=== PATIENT | male | born 1945 | race Caucasian/White ===

== ENCOUNTER → 2016-05-14 | Outpatient (REF) ==
[~2016-05-14] MED LIST: ASPIRIN 81M81 MG/TA2 PO; AVALIDE 12.5 MG1 TA1 PO; AZOR 5 MG-20 MG1 TAB PO; BETAPACE 120MG120 MG PO; CARDI-OMEGA1000 MG PO; CLARITIN 1010 MG/TAB PO; FLOMAX 0.40.4 MG/CAP PO; FLONASEALLERGY NS; HYTRIN 5MG C5 MG/CAP PO; KLONOPIN 0.5MG0.5 MG PO; LEADER CLE17 GM/Dose PO; LOPRESSOR 225 MG/TAB PO; MINOXIDIL 2.5 PO; MYRBETR50MG PO; NORCO 325 MG-51 TAB PO; PRADAXA 150MG150 MG PO; PYRIDIUM 100MG100 MG PO; SINEMET CR1 UDTAB.S1 PO; SINGULAIR 110 MG/TAB PO; TERAZOSIN HCL; VITAMIN D 1001000 IU PO; VYTORIN; ZOCOR 10MG10 MG PO; ZOLOFT 50MG50 MG PO
[2016-05-14 05:34] LABS: BASO # 0.1 (0.0-0.2); BASO % 0.7 % (0.0-2.0); EOS # 0.2 (0.0-0.7); EOS % 2.1 % (0-4.0); GRAN # 5.4 (1.4-6.5); GRAN % 75.3 % (42.2-75.2); HEMATOCRIT 37.5 % (42.0-52.0); HEMOGLOBIN 13.1 g/dl (13.5-18.0); LYMPH # 1.1 (1.2-3.4); LYMPH % 14.9 % (20.0-51.0); MEAN CELL VOLUME 91 fl (80.0-100.0); MEAN CORPUSCULAR HEMOGLOBIN 32 pg (27.0-31.0); MEAN CORPUSCULAR HGB CONC 35 g/dl (33.0-37.0); MEAN PLATELET VOLUME 9.2 fl (7.4-10.4); MONO # 0.5 (0.1-0.6); MONO % 6.7 % (1.7-9.3); PLATELET COUNT 168 K/mm3 (130-400); RED BLOOD COUNT 4.13 M/mm3 (4.20-5.60); REDCELL DISTRIBUTION WIDTH-CV 12.5 % (11.5-14.5); WHITE BLOOD COUNT 7.2 K/mm3 (4.8-10.8)
== END ==
LOC: ZMSC 05:29
PROVIDERS: Urology
DX: Z01.89 Encounter for other specified special examinations (principal)

== ENCOUNTER 2016-09-17 14:48 | Emergency (ER) | payer MEDICARE, BC ==
[~2016-09-17] VITALS: Ht 185.4 cm; Wt 122.7 kg
[~2016-09-17 14:48] MED LIST changes: -AVALIDE 12.5 MG1 TA1 PO; -CLARITIN 1010 MG/TAB PO; -FLOMAX 0.40.4 MG/CAP PO; -FLONASEALLERGY NS; -KLONOPIN 0.5MG0.5 MG PO; -LEADER CLE17 GM/Dose PO; -LOPRESSOR 225 MG/TAB PO; -MINOXIDIL 2.5 PO; -MYRBETR50MG PO; -NORCO 325 MG-51 TAB PO; -PYRIDIUM 100MG100 MG PO; -SINEMET CR1 UDTAB.S1 PO; -SINGULAIR 110 MG/TAB PO; -VITAMIN D 1001000 IU PO; -ZOLOFT 50MG50 MG PO
[2016-09-17 15:26] VITALS: BP 143/87; TEMP 99.2
[2016-09-17 16:07] LABS: BASO % 0.7 % (0.0-2.0); EOS # 0.2 (0.0-0.7); EOS % 2.9 % (0-4.0); GRAN # 3.9 (1.4-6.5); GRAN % 69.5 % (42.2-75.2); HEMATOCRIT 38.6 % (42.0-52.0); HEMOGLOBIN 13.5 g/dl (13.5-18.0); LYMPH # 1.2 (1.2-3.4); LYMPH % 21.5 % (20.0-51.0); MEAN CELL VOLUME 90 fl (80.0-100.0); MEAN CORPUSCULAR HEMOGLOBIN 31 pg (27.0-31.0); MEAN CORPUSCULAR HGB CONC 35 g/dl (33.0-37.0); MEAN PLATELET VOLUME 9.2 fl (7.4-10.4); MONO # 0.3 (0.1-0.6); MONO % 5.2 % (1.7-9.3); PLATELET COUNT 180 K/mm3 (130-400); RED BLOOD COUNT 4.31 M/mm3 (4.20-5.60); REDCELL DISTRIBUTION WIDTH-CV 12.5 % (11.5-14.5); WHITE BLOOD COUNT 5.6 K/mm3 (4.8-10.8)
[2016-09-17] MEDS ORDERED: SINEMET CR1 UDTAB.S1 PO (16:20)
[2016-09-17] MEDS ORDERED: FLONASEALLERGY NS (16:22)
[2016-09-17] MEDS ORDERED: VITAMIN D 1001000 IU PO (16:22)
[2016-09-17] MEDS ORDERED: KLONOPIN 0.5MG0.5 MG PO (16:22)
[2016-09-17] MEDS ORDERED: ZOLOFT 50MG50 MG PO ×2 (16:22→16:25)
[2016-09-17] MEDS ORDERED: ASPIRIN 81M81 MG/TA2 PO (16:22)
[2016-09-17] MEDS ORDERED: MINOXIDIL 2.5 PO (16:23)
[2016-09-17] MEDS ORDERED: AVALIDE 12.5 MG1 TA1 PO (16:23)
[2016-09-17] MEDS ORDERED: LOPRESSOR 225 MG/TAB PO (16:23)
[2016-09-17] MEDS ORDERED: CLARITIN 1010 MG/TAB PO (16:23)
[2016-09-17] MEDS ORDERED: MYRBETR50MG PO (16:24)
[2016-09-17] MEDS ORDERED: LEADER CLE17 GM/Dose PO (16:24)
[2016-09-17] MEDS ORDERED: BETAPACE 120MG120 MG PO (16:24)
[2016-09-17] MEDS ORDERED: FLOMAX 0.40.4 MG/CAP PO (16:24)
[2016-09-17] MEDS ORDERED: SINGULAIR 110 MG/TAB PO (16:24)
[2016-09-17 16:34] LABS: AMPHETAMINE URINE NEGATIVE; BARBITURATES URINE NEGATIVE; BENZODIAZEPINES URINE NEGATIVE; BUPRENORPHINE URINE NEGATIVE; METHADONE URINE NEGATIVE; OPIATES URINE NEGATIVE; OXYCODONE URINE NEGATIVE; PHENCYCLIDINE URINE NEGATIVE; PROPOXYPHENE URINE NEGATIVE; THC CANNABINOIDS URINE NEGATIVE
[2016-09-17 16:36] LABS: ADJUSTED CALCIUM 9.4 mg/dL (8.4-10.2); ALANINE AMINOTRANSFERASE 27 U/L (21-72); ALBUMIN 3.8 gm/dL (3.5-5.0); ALKALINE PHOSPHATASE 48 U/L (50-136); ANION GAP 9 mmol/L (7-16); BILIRUBIN,TOTAL 2.5 mg/dL (0.0-1.0); BLOOD UREA NITROGEN 17 mg/dL (9-20); CALCIUM 9.2 mg/dL (8.4-10.2); CARBON DIOXIDE 27 mmol/L (22-30); CHLORIDE 103 mmol/L (98-107); CREATININE, serum 0.96 mg/dL (0.66-1.25); GLUCOSE 125 mg/dL (74-106); POTASSIUM 3.4 mmol/L (3.4-5.0); SODIUM 139 mmol/L (137-145); TOTAL PROTEIN 6.1 gm/dL (6.4-8.2)
[2016-09-17 16:41] LABS: ACETAMINOPHEN < 10 ug/mL (10-30); SALICYLATE < 1.0 mg/dL
[2016-09-17 18:44] VITALS: PULSE 74
== END 2016-09-17 18:45 | disposition home or self-care (01) ==
LOC: COL.ER 14:48
PROVIDERS: Emergency Medicine
DX: F32.9 Major depressive disorder, single episode, unspecified (principal); R45.851 Suicidal ideations; Z79.82 Long term (current) use of aspirin

== ENCOUNTER 2016-11-10 17:27 | Observation (INO) | payer MEDICARE, BC ==
[~2016-11-10] VITALS: Ht 185.4 cm; Wt 126.5 kg
[~2016-11-10 17:27] MED LIST changes: +AVALIDE 12.5 MG1 TA1 PO; +CLARITIN 1010 MG/TAB PO; +FLOMAX 0.40.4 MG/CAP PO; +FLONASEALLERGY NS; +KLONOPIN 0.5MG0.5 MG PO; +LEADER CLE17 GM/Dose PO; +LOPRESSOR 225 MG/TAB PO; +MINOXIDIL 2.5 PO; +MYRBETR50MG PO; +SINEMET CR1 UDTAB.S1 PO; +SINGULAIR 110 MG/TAB PO; +VITAMIN D 1001000 IU PO; +ZOLOFT 50MG50 MG PO
[2016-11-10 18:49] LABS: BASO # 0.1 (0.0-0.2); BASO % 0.6 % (0.0-2.0); EOS # 0.1 (0.0-0.7); EOS % 0.9 % (0-4.0); GRAN # 7.8 (1.4-6.5); GRAN % 85.6 % (42.2-75.2); HEMATOCRIT 41.9 % (42.0-52.0); HEMOGLOBIN 14.5 g/dl (13.5-18.0); LYMPH # 0.8 (1.2-3.4); LYMPH % 8.5 % (20.0-51.0); MEAN CELL VOLUME 90 fl (80.0-100.0); MEAN CORPUSCULAR HEMOGLOBIN 31 pg (27.0-31.0); MEAN CORPUSCULAR HGB CONC 35 g/dl (33.0-37.0); MEAN PLATELET VOLUME 9.5 fl (7.4-10.4); MONO # 0.4 (0.1-0.6); PLATELET COUNT 193 K/mm3 (130-400); RED BLOOD COUNT 4.64 M/mm3 (4.20-5.60); REDCELL DISTRIBUTION WIDTH-CV 12.7 % (11.5-14.5); WHITE BLOOD COUNT 9.1 K/mm3 (4.8-10.8)
[2016-11-10 18:59] LABS: ADJUSTED CALCIUM 9.3 mg/dL (8.4-10.2); ALBUMIN 4.1 gm/dL (3.5-5.0); BILIRUBIN,TOTAL 1.9 mg/dL (0.0-1.0); CALCIUM 9.4 mg/dL (8.4-10.2); CREATININE, serum 1.04 mg/dL (0.66-1.25); POTASSIUM 3.9 mmol/L (3.4-5.0); TOTAL PROTEIN 6.8 gm/dL (6.4-8.2)
[2016-11-10 19:27] LABS: PH 7 (5-8); SQUAMOUS EPITHELIAL None Seen /hpf; URINE APPEARANCE Hazy; URINE BACTERIA None Seen /hpf; URINE BILIRUBIN Negative (NEGATIVE); URINE BLOOD 2+ (NEGATIVE); URINE COLOR Yellow; URINE GLUCOSE Negative (NEGATIVE); URINE KETONE Negative (NEGATIVE); URINE RBC 20-50 /hpf; URINE UROBILINOGEN Negative (NEGATIVE)
[2016-11-10 21:29] VITALS: BP 150/88; PULSE 69; TEMP 98.4
[2016-11-10 23:00] VITALS: BP 150/88; PULSE 69
[2016-11-11] VITALS (12 sets, daily range): BP systolic 124–152; BP diastolic 70–89; PULSE 69–70; TEMP 97.4–98.4
[2016-11-11] MEDS ORDERED: PYRIDIUM 100MG100 MG PO (17:33)
[2016-11-11] MEDS ORDERED: NORCO 325 MG-51 TAB PO (17:34)
[2016-11-13 12:48] VITALS: BP 129/86; PULSE 70; TEMP 98.2
== END 2016-11-11 18:50 | disposition home or self-care (01) ==
LOC: COL.ER 17:27 → SURG 20:00
PROVIDERS: Emergency Medicine
DX: N20.1 Calculus of ureter (principal); I10 Essential (primary) hypertension; G20 Parkinson's disease; I48.91 Unspecified atrial fibrillation; G47.33 Obstructive sleep apnea (adult) (pediatric); M19.90 Unspecified osteoarthritis, unspecified site; E66.01 Morbid (severe) obesity due to excess calories; Z90.79 Acquired absence of other genital organ(s); Z96.653 Presence of artificial knee joint, bilateral; Z95.0 Presence of cardiac pacemaker; Z90.49 Acquired absence of other specified parts of digestive tract; Z87.891 Personal history of nicotine dependence
CPT/HCPCS: C1769; C2617; G0378; J0690; J1100; J1885; J2270; J2405; J2704; J3010; J7030; Q9967

== ENCOUNTER → 2017-03-30 | Outpatient (REF) ==
[~2017-03-30] MED LIST changes: +NORCO 325 MG-51 TAB PO; +PYRIDIUM 100MG100 MG PO
== END ==
LOC: ZLAB.WCH 18:13
DX: Z01.89 Encounter for other specified special examinations (principal)
CPT/HCPCS: G0103

== ENCOUNTER → 2018-02-24 | Outpatient (CLI) | payer MEDICARE, BC | LOC: COL.RAD 09:58 | DX: M43.16 Spondylolisthesis, lumbar region (principal); M47.816 Spondylosis without myelopathy or radiculopathy, lumbar region; M48.061 Spinal stenosis, lumbar region without neurogenic claudication | CPT/HCPCS: A9585 ==

== ENCOUNTER → 2018-05-03 | Outpatient (REF) | LOC: ZLAB.WCH 18:19 | DX: Z01.89 Encounter for other specified special examinations (principal) ==

== ENCOUNTER → 2019-01-14 | Outpatient (CLI) | payer MEDICARE, BC | LOC: COL.RAD 07:16 | DX: I67.82 Cerebral ischemia (principal); G20 Parkinson's disease; M17.12 Unilateral primary osteoarthritis, left knee; S83.232A Complex tear of medial meniscus, current injury, left knee, initial encounter | CPT/HCPCS: A9585 ==

== ENCOUNTER 2020-04-02 19:21 | Inpatient (IN) | payer MEDICARE, BC ==
[~2020-04-02] VITALS: Ht 182.9 cm; Wt 122.0 kg
[~2020-04-02 19:21] MED LIST changes: -AVALIDE 12.5 MG1 TA1 PO; +AVAPRO300 M1 PO; +SINEMET 25/101 UDTAB PO; -SINEMET CR1 UDTAB.S1 PO
[2020-04-02 20:08] VITALS: BP 122/66; PULSE 70; TEMP 98.1
[2020-04-02 20:12] VITALS: BP 122/66; PULSE 70; TEMP 98.1
--- NOTE | 2020-04-02 23:22 | NUR ---
Patient admitted with COVID19+,elevated CR 1.3, Total Avtar 4.7, TR 0.04 per documents sent from [facility]. Patient alert and oriented x4. on room air at 91-94%. heart paced, on tele. wheezing on RUL, Other lobes are Diminished. mild disconloration on bilateral lower extremities. strong pulses. admitted with IV on Left antecubital. denies any pain, diarrhea, or nausea. patient was directly admitted from [facility]. RN called nurse number from receiving facility for report, call not answered. patient afebrile, temp 98. require standby/one person assist to ambulate. Patient unable to verify medications. blood drawn from right hand, one attempt- for troponin. call light within reach. patient sleeping at this time.
[2020-04-03] VITALS (8 sets, daily range): BP systolic 129–171; BP diastolic 56–97; PULSE 73–95; TEMP 97.2–103.2
--- NOTE | 2020-04-03 03:34 | NUR ---
pt asleep in bed. troponin recheck 0.018 .
--- NOTE | 2020-04-03 09:05 | NUR ---
Pt awake and alert upon entry, no C/O pain at this time. Shift assessments complete, left Pt call light in reach, bed in lowest position.
--- NOTE | 2020-04-03 11:20 | NUR ---
Pt non compliant with safety protocols, explained reasons for bed \ chair alarm, Pt will not call before rising.
--- NOTE | 2020-04-03 14:47 | NUR ---
The patient is positive for COVID. SW contacted the patient's , Shiela (ph#[phone]), to discuss discharge plan. The patient lives in [place] with his . Shiela reports that the patient is independent with ADLs and has a walker. The patient's PCP is Dr. Dae Pacheco and he receives his medications from [facility]. Shiela reports no difficulties obtaining his meds. The patient does not have a DPOA-HC in EMR, but Shiela reports that he does have one completed and that she is the patient's DPOA-HC. PT/OT are recommending post-acute rehab and state that he is very weak due to COVID. GIANNI discussed this with Shiela and informed her of the different options for post-acute rehab. Shiela reports that she knows the patient will want to return home and she would be okay with him returning home. She states she would be able to assist him. GIANNI encouraged Shiela to think about rehab and to talk to the patient. Shiela reports that she will talk to the patient today and see what he wants to do. SW to follow up with Shiela.
[2020-04-03] MEDS ORDERED: HCTZ 25MG TAB25 MG PO (15:21)
[2020-04-03] MEDS ORDERED: LIPITOR 80MG80 MG PO (15:22)
[2020-04-03] MEDS ORDERED: MELATIN 3 MG-11 TAB PO (15:23)
[2020-04-03] MEDS ORDERED: REQUIP XL12 MG PO (15:24)
[2020-04-03] MEDS ORDERED: ARICEPT10 MG PO (15:28)
[2020-04-03] MEDS ORDERED: BELSOMRA10 MG PO (15:40)
--- NOTE | 2020-04-03 20:20 | NUR ---
Patient assessed at this time. Alert and oriented to self only. High fall risk precautions in place. Denies having pain and discomfort. Peripheral INT to left AC. Denies SOB and dyspnea. On room air. LS with faint crackles in upper lobes, diminished in lower. Occasional moist cough. Respirations even and unlabored. HRR. Telemetry in place. Capillary refill less than 3 seconds. Non-tenting skin turgor. BSAx4. Abdomen soft and non-tender. 2+ edema BLE. Voices no questions, needs, or concerns at this time. Resting in bed with call light within reach. Bed alarm on.
--- NOTE | 2020-04-03 23:15 | NUR ---
Temp 103.2. Given PRN APAP at this time.
[2020-04-04] VITALS (473 sets, daily range): BP systolic 85–132; BP diastolic 52–83; PULSE 68–154; TEMP 99.8–102.2; O2SAT 79–100
--- NOTE | 2020-04-04 05:57 | NUR ---
Patient continues to be on room air. Continues to run high fevers, most recently 102.1. Given PRN APAP per orders. Denies having pain and discomfort at this time, and no s/sx of pain or discomfort noted such as facial grimacing and moaning. High fall risk precautions remain in place. Continues on Contact/Droplet isolation per protocol. Resting in bed with call light within reach. Bed alarm on.
--- NOTE | 2020-04-04 07:57 | NUR ---
Called regarding consult for patient who came down from medical floor due to going into afib RVR with low blood pressure. He said to give a 250 ml bolud of NS and then give an Amiodorone bolus of 150 mg, and start amiodorone gtt at 1mg/hr. He will be in shortly to see patient.
--- NOTE | 2020-04-04 08:21 | NUR ---
At approximately 0610, telemetry called this nurse and stated that patient was in A-fib RVR. Called RT to have them do an EKG STAT. BP at that time 134/86. HR 140-150s. Denies pain and discomfort. SPO2 87% room air. Started on oxygen and titrated up to 8 L/min via NC to keep SPO2 at 93%. Called Dr. Burns at 0630 with update. New order to give 5 mg Cardizem bolus now. supervisor electronic testing 0notified and brining medication up to floor. BP prior to administration was 132/64. BP afterwards was 85/52, then 75/42. Manual BP obtained at that time with a result of 90/64. Called to Dr. Burns and updated about BP drop. Patient also continues in A-fib RVR ranging from 120-150s. New order for 1 L NS bolus, cardiology consult, and transfer to ICU. supervisor electronic testing aware and at bedside with this nurse. Called and got ICU bed. Started bolus. ICU unable to receive report when called at 0700. ICU called back and received report at 0725. Patient transferred to ICU and care taken over by ICU nurse at 0800. Attempted to call cardiology consult, but no answer by on-call physician. ICU nurse notified.
[2020-04-04 08:24] LABS: BASO % 0.7 % (0.0-2.0); EOS % 0.2 % (0-4.0); GRAN # 3.3 (1.4-6.5); HEMOGLOBIN 12.3 g/dl (13.5-18.0); LYMPH # 0.4 (1.2-3.4); LYMPH % 9.2 % (20.0-51.0); MEAN CELL VOLUME 94 fl (80.0-100.0); MEAN CORPUSCULAR HEMOGLOBIN 32 pg (27.0-31.0); MEAN CORPUSCULAR HGB CONC 34 g/dl (33.0-37.0); MEAN PLATELET VOLUME 10.3 fl (7.4-10.4); MONO # 0.3 (0.1-0.6); MONO % 6.7 % (1.7-9.3); PLATELET COUNT 137 K/mm3 (130-400); RED BLOOD COUNT 3.87 M/mm3 (4.20-5.60); REDCELL DISTRIBUTION WIDTH-CV 12.5 % (11.5-14.5)
[2020-04-04 08:25] LABS: HEMATOCRIT 36.2 % (42.0-52.0)
[2020-04-04 08:39] LABS: BILIRUBIN,TOTAL 2.2 mg/dL (0.0-1.0); CALCIUM 8.2 mg/dL (8.4-10.2); CREATININE, serum 1.15 (0.66-1.25); POTASSIUM 3.3 mmol/L (3.4-5.0); TOTAL PROTEIN 5.3 gm/dL (6.4-8.2)
[2020-04-04 18:25] LABS: BILIRUBIN,DIRECT 0.2 mg/dL (0.0-0.4); POTASSIUM 3.8 mmol/L (3.4-5.0)
--- NOTE | 2020-04-04 18:32 | NUR ---
1700- PT sinus rhythm, confirmed with EKG performed by RT. Dr. Rodriguez notifeid. PT continues to be in SR and is resting in bed without complaint
[2020-04-04 18:37] LABS: MAGNESIUM 2.1 mg/dL (1.6-2.3)
[2020-04-05] VITALS (495 sets, daily range): BP systolic 81–122; BP diastolic 42–84; PULSE 69–140; TEMP 97.9–101; O2SAT 58–99
[2020-04-05 05:34] LABS: BASO % 0.4 % (0.0-2.0); GRAN # 5.9 (1.4-6.5); GRAN % 83.9 % (42.2-75.2); HEMATOCRIT 43.7 % (42.0-52.0); LYMPH # 0.8 (1.2-3.4); LYMPH % 10.6 % (20.0-51.0); MEAN CELL VOLUME 97 fl (80.0-100.0); MEAN CORPUSCULAR HEMOGLOBIN 32 pg (27.0-31.0); MEAN CORPUSCULAR HGB CONC 33 g/dl (33.0-37.0); MEAN PLATELET VOLUME 10.4 fl (7.4-10.4); MONO # 0.3 (0.1-0.6); MONO % 4.8 % (1.7-9.3); PLATELET COUNT 152 K/mm3 (130-400); RED BLOOD COUNT 4.51 M/mm3 (4.20-5.60); REDCELL DISTRIBUTION WIDTH-CV 12.8 % (11.5-14.5)
[2020-04-05 05:41] LABS: HEMOGLOBIN 14.3 g/dl (13.5-18.0)
[2020-04-05 05:47] LABS: ALBUMIN 3.7 gm/dL (3.5-5.0); BILIRUBIN,TOTAL 1.8 mg/dL (0.0-1.0); CALCIUM 8.6 mg/dL (8.4-10.2); CREATININE, serum 1.22 (0.66-1.25); MAGNESIUM 2.2 mg/dL (1.6-2.3); POTASSIUM 4.4 mmol/L (3.4-5.0); TOTAL PROTEIN 6.4 gm/dL (6.4-8.2)
[2020-04-05 06:16] LABS: TSH w REFLEX 0.21 uIU/mL (0.465-4.680)
--- NOTE | 2020-04-05 10:35 | NUR ---
Report recieved from Clarisse HILL and Debbie HILL, assumed care of patient at this time.
--- NOTE | 2020-04-05 18:25 | NUR ---
Patient has been stable since arriving to the floor. At this time tele called to notify me that his heart rate was in the 140s-150s. Patient was assess and deneid chest pain or SOB. Tele called again while assessing and stated his rate was up again. I questioned whether it was NSR, tele monitor measured rate and stated that it was irregular and was likely afib. MONY Rodriguez, was notified, EKG ordered to confirm. Patient remains asymptomatic at this time. Respiratory notified of orders. WIll continue to monitor. Call light is in reach.
--- NOTE | 2020-04-05 19:30 | NUR ---
Initial assessment done-- patient in afib- RVR- rate 140,s EKG completed- Jennifer SYKES here to see patient-- order to transfer patient back to ICU at this time--- patient denies pain, alert/oriented- sleepy, B/P soft at 96/50, sats 91% on 2L/nc-- has Smith to DD with sarthak urine-
--- NOTE | 2020-04-05 20:15 | NUR ---
Report called to Briseida HILL in ICU,,, patient transferred to ICU at this time with belongings- called to give update on condition
--- NOTE | 2020-04-05 20:20 | NUR ---
Arrived to the unit via stretcher; Patient alert and oriented upon arrival. Not in distress but verbalizing displeasure at returning to the ICU. This nurse explained to patient the reason for needing to transfer back to this unit. Attached to all monitors; currently in A-fib RVR. Patient denies any increased shortness of breath, palpitations or chest pain. Currenlty on 2L NC and inspirational wheezing audible without a stethoscope. Patient is irritable and became upset and would not finish answering basic orientation quesions, such as "what is the current year". Stated he knows what the year is and that should be "good enough" . Also attempted to explain the purpose of asking orientation questions so that we can have a baseline mentation. Patient did not appear satisfied with this response. Will continue to monitor; call light left within reach.
[2020-04-06] VITALS (511 sets, daily range): BP systolic 99–139; BP diastolic 59–97; PULSE 98–142; TEMP 97.5–100.5; O2SAT 40–100
--- NOTE | 2020-04-06 | NUR ---
Patient has had audible wheezing since arrival onto unit. Patient stated that the wheezing was not new. Patient has not reported new or worsening SOA. 02 stable in mid to upper 90's on 2L NC. Hospitalist notifed. Will verify if patient has a breathing treatment available.
[2020-04-06 05:17] LABS: MEAN CELL VOLUME 95 fl (80.0-100.0); MEAN CORPUSCULAR HGB CONC 33 g/dl (33.0-37.0); MEAN PLATELET VOLUME 10.4 fl (7.4-10.4); PLATELET COUNT 146 K/mm3 (130-400); RED BLOOD COUNT 3.82 M/mm3 (4.20-5.60); REDCELL DISTRIBUTION WIDTH-CV 12.5 % (11.5-14.5)
[2020-04-06 05:29] LABS: CALCIUM 8.2 mg/dL (8.4-10.2); CREATININE, serum 1.05 (0.66-1.25); HEMATOCRIT 36.2 % (42.0-52.0); HEMOGLOBIN 12.1 g/dl (13.5-18.0); MEAN CORPUSCULAR HEMOGLOBIN 32 pg (27.0-31.0)
--- NOTE | 2020-04-06 05:43 | NUR ---
HR in A-fib and ranging from 115 to 140's. Hospitalist had spoken with cardiology earlier in the shift. Toolroom Checker ok with a HR 130 or less. Hospitatlist notified that HR occasionally greater than 130, but not sustained. Ordered to just continue to monitor at this time and cardiology will see him in the morning.
[2020-04-06 05:49] LABS: ANISOCYTOSIS 1+; BAND 36 % (0-10); LYMPHOCYTE 4 % (20.0-51.0); NEUTROPHILS 57 % (42.0-75.2)
[2020-04-06 05:50] LABS: HYPOCHROMIA 1+; PLATELET ESTIMATE NORMAL (NORMAL)
--- NOTE | 2020-04-06 08:00 | NUR ---
PATIENT IS AWAKE AND EATING BREAKFAST. HE BECOMES TEARFUL DURING OUT INITIAL INTERACTIONS OF THE DAY. HE STATES "IS THERE ANY WAY A MAN CAN CHOOSE WHEN HE WANTS TO ?" I GIVE EMOTIONAL SUPPORT AND WORDS OF ENCOURAGEMENT. BY THE END OF OUR CONVERSATION, HE IS IN A BETTER MOOD. BED ALARM ACTIVATED AND CALL LIGHT WITHIN REACH.
--- NOTE | 2020-04-06 09:00 | NUR ---
DR. BETTS IS HERE AND HE STATES THAT PATIENT CAN GO BACK ON PO AMIODARONE, GIVE DOSE OF IV DIGOXIN RIGHT NOW AND PLACE ON PO DIGOXIN DAILY FOR RATE CONTROL. PHARMACY, [facility], HERE TO HEAR THOSE ORDERS. HE STATES THAT HE IS OK WITH HEART RATE LONG IT IS 120s OR LESS.
--- NOTE | 2020-04-06 12:00 | NUR ---
PATIENT PULLS OF GOWN AND TELEMETRY REPEATEDLY. I ASK HIM TO KEEP IT ON AND HE STATES "GET ME THE HELL OUT OF HERE. I WANT TO GO HOME!" I EXPLAIN TO HIM THAT HE NEEDS TO STAY IN THE HOSPITAL BECAUSE OF HIS COVID INFECTION AND THE PNEUMONIA. HE IS ANGRY, BUT ALLOWS ME TO PUT THE TELE BACK ON AND HIS GOWN ON.
--- NOTE | 2020-04-06 16:30 | NUR ---
PATIENT ASSISTED TO THE RECLINER WITH TWO RNs AND A GAIT BELT. HE HAS SHUFFLING GAIT AND IS REMINDED TO TAKE BIGGER STEPS. HE TOLERATES THIS TRANSFER WELL. HE HAS BEEN ON ROOM AIR FOR A COUPLE OF HOURS MAINTAINING AN SPO2 GREATER THAN 92%. THIS NURSE NOTES THAT ONE OF THE PATIENT'S IV'S HAS BEEN REMOVED AND PLACED ON THE SIDE TABLE. I TELL THE PATIENT THAT HE NEEDS TO KEEP HIS IV'S IN PLACE SO THAT WE CAN GIVE HIM THE MEDICATION HE NEEDS. HE SAYS "OK".
--- NOTE | 2020-04-06 23:40 | NUR ---
Patient sleeping in bed; arouses easily. Denies any needs or concerns at this time.
[2020-04-07] VITALS (438 sets, daily range): BP systolic 96–155; BP diastolic 77–96; PULSE 71–120; TEMP 97.4–98; O2SAT 56–100
[2020-04-07 05:00] LABS: BASO % 0.2 % (0.0-2.0); EOS % 0.2 % (0-4.0); GRAN # 3.8 (1.4-6.5); GRAN % 84.5 % (42.2-75.2); LYMPH # 0.4 (1.2-3.4); LYMPH % 7.8 % (20.0-51.0); MEAN CELL VOLUME 95 fl (80.0-100.0); MEAN CORPUSCULAR HEMOGLOBIN 32 pg (27.0-31.0); MEAN CORPUSCULAR HGB CONC 33 g/dl (33.0-37.0); MEAN PLATELET VOLUME 10.4 fl (7.4-10.4); MONO # 0.3 (0.1-0.6); MONO % 6.2 % (1.7-9.3); PLATELET COUNT 178 K/mm3 (130-400); REDCELL DISTRIBUTION WIDTH-CV 12.5 % (11.5-14.5)
[2020-04-07 05:11] LABS: CALCIUM 8.1 mg/dL (8.4-10.2); CREATININE, serum 0.85 (0.66-1.25); POTASSIUM 3.9 mmol/L (3.4-5.0)
--- NOTE | 2020-04-07 08:42 | NUR ---
This am Patient is alert and oriented. c/o back being tight. PT helped up to chair via gaitbelt and 1 assist. Patient has a shuffling gait and somewhat unsteady. Patient is eager to work with physical therapy. Patient states sitting in chair feels better for his back. Pt is currently resting listening to music with call light in reach.
--- NOTE | 2020-04-07 11:29 | NUR ---
Report given to LIZ Krishnan on medical floor.
--- NOTE | 2020-04-07 11:51 | NUR ---
Patient transferred by wheelchair up to room 306. LIZ Krishnan assumed care at this time.
--- NOTE | 2020-04-07 12:36 | NUR ---
Pt arrives to medical unit rm 306 from ICU via WC, A&O x 3. VSS. Pt denies pain at this time. IVF's infusing per orders through right wrist site without s/s of complications. No further needs reported. Call light in reach.
--- NOTE | 2020-04-07 14:31 | NUR ---
Pt having issues with leaking catheter. Balloon deflated and catheter advanced, balloon reinflated with 10 ml water and catheter seated. Statlock repositioned to not pull catheter taut. Pt reports "it feels better." No further needs reported. Call light in reach.
--- NOTE | 2020-04-07 17:30 | NUR ---
Around 1600, LEGAL DIRECTOR informed this nurse that pt had inadvertently pulled his IV out of his right wrist. LIZ Cazares attempted IV start x 2. This nurse attempted IV start x 2. c d area supervisor notified and successful with IV start to left forearm. IVF's restarted to new site and sched IV medication started as well. Pt reminded to not pull at IV or catheter or school bus monitor. Pt verbalizes understanding. No further needs reported. Call light in reach.
--- NOTE | 2020-04-07 22:24 | NUR ---
Patient in bed at this time.
[2020-04-08 03:42] VITALS: BP 142/98; PULSE 97; TEMP 97.4
--- NOTE | 2020-04-08 07:30 | NUR ---
Assessment complete. Patient set off bed alarm at this time attempting to sit up on the side of the bed stating that his back was stiff from laying. I gowned up to assist patient. Patient requested to stand at the bedside "for a while", X1 assist used to stand patient up and allow him to stretch his back and stand for a little bit, this helped. Patient was then assisted to the recliner, chair alarm in place. Smith is patent, draining clear yellow urine at this time. IVF continue to infuse with no issues. Will continue to monitor. Fall precautions are in place. No other needs. Call light is in reach.
[2020-04-08 07:54] VITALS: BP 159/96; PULSE 98; TEMP 97.5
[2020-04-08 08:24] LABS: CALCIUM 8.5 mg/dL (8.4-10.2); CREATININE, serum 0.85 (0.66-1.25); MAGNESIUM 2.3 mg/dL (1.6-2.3); POTASSIUM 4.1 mmol/L (3.4-5.0)
--- NOTE | 2020-04-08 11:10 | NUR ---
Patient up to the restroom at this time. Ambulated through room with walker, steady gait but insisted on walking with walker not touching the groud, despite suggestions to use it as an aid top make sure he didnt fall. OVerall patient did well. Pt now back to bed, bed alarm set. Call light is in reach.
[2020-04-08 12:12] VITALS: BP 147/90; PULSE 80; TEMP 97.4
[2020-04-08 16:09] VITALS: BP 148/81; PULSE 94; TEMP 97.3
--- NOTE | 2020-04-08 17:02 | NUR ---
Patient has had a good day. He has moved around the room quite a bit with assistance and his walker. He is currently in the recliner. Provider mentioned removing carlos catheter, still awaiting orders. Attempted to call with no answer. Will call again before the end of shift. Chair alarm is set. Continuing to monitor.
[2020-04-08 20:18] VITALS: BP 150/71; PULSE 69; TEMP 97.6
[2020-04-08 23:58] VITALS: BP 155/91; PULSE 97; TEMP 97.6
[2020-04-09 03:54] VITALS: BP 146/87; PULSE 94; TEMP 97.7
[2020-04-09 08:08] VITALS: BP 152/95; PULSE 69; TEMP 97.2
--- NOTE | 2020-04-09 08:30 | NUR ---
Pt awake and alert upon entry, in bed. No C\O pain at this time. Talkative and appropriate. Shift assessments copmplete, left Pt call light in reach, bed in lowest position, alarm on.
[2020-04-09 11:17] VITALS: BP 145/79; PULSE 102
--- NOTE | 2020-04-09 13:31 | NUR ---
Postal Inspector reviewed PT notes which recommend IPR. GIANNI contacted Nohemy, IPR Director to give referral. GIANNI contacted patient's , Shiela to provide update. Shiela states she understands this will likely benefit patient but also advised patient has Parkinsons and isn't sure if there would be any point to rehab. Shiela states patient sees Dr. Yeung and she is going to call them to discuss this with them. Shiela to also discuss this with patient then will follow up with GIANNI. GIANNI also advised Shiela that rehab could be done at SNF as well. GIANNI will continue to follow.
[2020-04-09] MEDS ORDERED: AZO-STANDARD95 MG PO (14:44)
[2020-04-09] MEDS ORDERED: DULCOLAX S10 MG/SUPP RC (14:44)
[2020-04-09] MEDS ORDERED: TYLENOL 325MG325 MG PO (14:45)
[2020-04-09] MEDS ORDERED: TOPROL XL 25MG25 MG PO (14:45)
[2020-04-09] MEDS ORDERED: PACERONE200 MG PO (14:46)
[2020-04-09] MEDS ORDERED: PACERONE400 MG PO (14:46)
[2020-04-09] MEDS ORDERED: ELIQUIS 5MG PO (14:46)
[2020-04-09] MEDS ORDERED: LANOXIN 0.120.125 MG PO (14:46)
[2020-04-09] MEDS ORDERED: RT Albuterol HFA MDI IH ×2 (14:47)
[2020-04-09] MEDS ORDERED: NORCO 325 MG-51 TAB PO (14:48)
[2020-04-09] MEDS ORDERED: HCTZ12.5TAB PO (14:49)
[2020-04-09] MEDS ORDERED: AVAPRO75 MG PO (14:50)
--- NOTE | 2020-04-09 14:51 | NUR ---
Patient to discharge to Inpatient Rehab today. No additional needs at this time.
[2020-04-09] MEDS ORDERED: DECADRON6 MG PO (14:56)
[2020-04-09 16:18] VITALS: BP 117/67; PULSE 76
--- NOTE | 2020-04-09 16:54 | NUR ---
Pt discharged to [facility].
== END 2020-04-09 16:54 | DRG 177 ==
LOC: PEDS 19:21 → ICU 04-04 07:54 → MEDICAL 04-05 17:57 → ICU 04-05 19:54 → MEDICAL 04-07 12:34
PROVIDERS: Internal Medicine; ADMIT Hospitalist
PROC: XW033E5 Introduction of Remdesivir Anti-infective into Peripheral Vein, Percutaneous Approach, New Technology Group 5 (ICD-10-PCS; principal; 2020-04-05)
DX: U07.1 COVID-19 (principal); J12.82 Pneumonia due to coronavirus disease 2019; J96.01 Acute respiratory failure with hypoxia; N17.9 Acute kidney failure, unspecified; I48.20 Chronic atrial fibrillation, unspecified; I10 Essential (primary) hypertension; I25.10 Atherosclerotic heart disease of native coronary artery without angina pectoris; E87.6 Hypokalemia; I07.1 Rheumatic tricuspid insufficiency; E78.5 Hyperlipidemia, unspecified; G20 Parkinson's disease; F32.9 Major depressive disorder, single episode, unspecified; R53.81 Other malaise; Z79.82 Long term (current) use of aspirin; Z79.891 Long term (current) use of opiate analgesic; Z95.0 Presence of cardiac pacemaker; Z73.0 Burn-out
CPT/HCPCS: 99223-AI; 99232-AI; 99233-AI; 99239; A4314; J0282; J0696; J1160; J7030; J7040; J7050; J7060; J8540

== ENCOUNTER 2020-04-09 15:31 | Inpatient (IN) | payer MEDICARE, BC ==
[~2020-04-09] VITALS: Ht 182.9 cm; Wt 117.6 kg
[~2020-04-09 15:31] MED LIST changes: +ARICEPT10 MG PO; +AVAPRO75 MG PO; +AZO-STANDARD95 MG PO; +BELSOMRA10 MG PO; +DECADRON6 MG PO; +DULCOLAX S10 MG/SUPP RC; +ELIQUIS 5MG PO; +HCTZ 25MG TAB25 MG PO; +HCTZ12.5TAB PO; +LANOXIN 0.120.125 MG PO; +LIPITOR 80MG80 MG PO; +MELATIN 3 MG-11 TAB PO; +PACERONE200 MG PO; +PACERONE400 MG PO; +REQUIP XL12 MG PO; +RT Albuterol HFA MDI IH; +TOPROL XL 25MG25 MG PO; +TYLENOL 325MG325 MG PO
[2020-04-10 06:23] VITALS: BP 141/83; PULSE 75; TEMP 97.3
--- NOTE | 2020-04-10 10:07 | NUR ---
Pt awake and alert upon entry, sitting in the recliner. No C\O pain at this time. Shift assessment complete, left Pt call light in reach, bed in lowest position.
[2020-04-10 18:32] VITALS: BP 112/74; PULSE 96; TEMP 97.5
--- NOTE | 2020-04-10 19:24 | NUR ---
Pt resting in the room, mildly confused, easily redirected. No C/O pain throughout the day. VS have remained stable.
--- NOTE | 2020-04-10 20:30 | NUR ---
Sitting in chair-- attempting to get up-- states he needs to "go out", confused, shuffling gait with walker-- did take to bathroom, voided small amount urine, states he need to find his electric heater-- informed I will turn up the heat-- changed him out of street clother-- gown and ffoties put on patient, meds given-- back to bed--did have some pudding and crackers as a snack-- bed alarm on,
--- NOTE | 2020-04-11 04:30 | NUR ---
Has been sleeping between bathroom trips during the night-- now is awake and up to bathroom with walker and assistance-- very slow,shuffling gait--- pt will not go back to bed, insists he is taking a shower and getting dressed, informed him its the middle of the night-- states he needs to find his car--trying to go out in the driver- uncooperative, did help patient get dressed ,pt insisting , is now sitting in the recliner having a snack-- refused to watch TV-- did find his phone charger tester and he is charging his phone,, chair alarm on
[2020-04-11 04:31] VITALS: BP 160/95; PULSE 76; TEMP 97.4
--- NOTE | 2020-04-11 10:49 | NUR ---
After review of patient labs and clinical status and based on COV symptom onset of 1-24-20 recommend COV isolation precautions be discontinued. LIZ Pelaez
--- NOTE | 2020-04-11 12:32 | NUR ---
Patient alert and oriented. complain of chronic back pain at 8/10, tylenol given for pain. Physical therapist continue to work with patient. patient report good appetite. No new concern or question at this time. call light within reach. Patient on Room air.
[2020-04-11 13:15] VITALS: BP 142/78; PULSE 75; TEMP 97.5
--- NOTE | 2020-04-11 15:03 | NUR ---
Patient transferred to IPR unit. Report give to SHEBA Fitzpatrick nurse. patient belonging was transferred with patient.
--- NOTE | 2020-04-11 15:54 | NUR ---
Patient ambulated with out using his call light. He was frustrated with this nurse stating that he did not want to sit down or lay down and didn't want to walk. Does not want staff to be in the bathroom with him. He is stable with his standing when using the urinal.
[2020-04-11 16:20] VITALS: BP 145/81; PULSE 66; TEMP 97.5
--- NOTE | 2020-04-11 16:20 | NUR ---
The patient is new to [facility]. Soap Drier Operator met with the patient to complete intake. The patient lives in [place] with his , Shiela. The patient has a CPAP and a walker. The patient's PCP is Dr. Parada and patient receives medications from [facility]. The patient does not have advanced directives in the EMR. But states they are completed and designate Shiela. There are no additional needs at this time.
--- NOTE | 2020-04-11 16:25 | NUR ---
Actuarial Consultant met with the patient to review the Team Conference Note. The patient has no questions at this time.
--- NOTE | 2020-04-11 19:37 | NUR ---
RECEIVED CHANGE OF SHIFT REPORT FROM DAY SHIFT NURSE.
--- NOTE | 2020-04-11 19:49 | NUR ---
Patient arrived to [facility] at 2:40 PM today. This nurse received report from LIZ Kyle from Medical unit. Patient was immediatly seen by OT and completed his therapies. Patient tolerating diet well this shift. He is on an AHA diet and is independent with eating. Patient is a SBA without a walker, but with a gait belt. He does have some confusion at times. Patient has had an alarm set with both bed and recliner. Patient uses the urinal in the bathroom. He is considered a high fall risk due to his confusion. His IV was removed to his LFA after arrival to [facility]. He takes Eliquis for his VTE. His last BM was yesterday. Patient did complain of some back pain and was given prn Tylenol. Will continue to monitor.
--- NOTE | 2020-04-11 20:00 | NUR ---
NOT ORIENTED TO PLACE/TIME. GAIT SHUFFLING TO UNSTEADY AT TIME, VERBALIZES HE DOES NOT NEED TO HAVE GAIT ON WHEN OUT OF BED.
--- NOTE | 2020-04-11 20:11 | NUR ---
PATIENT SAT UP AT SIDE OF BED, SETTING OFF BED ALARM, PATIENT STATED HE DID NOT KNOW WHY HE WAS SITTING UP AT SIDE OF BED. STAFF WAS ABLE TO ENCOURAGE PATIENT TO LAY BACK DOWN FOR HS. DENIES ANY NEEDS AT THIS TIME.
--- NOTE | 2020-04-11 20:46 | NUR ---
PATIENT GETTING OUT OF BED WITHOUT CALLING FOR ASSISTANCE FROM STAFF, SETTING OFF BED ALARM. PATIENT AMBULATING WITH SHORT CHOPPY STRIDE, NOT QUITE SHUFFLING BUT CLOSE, WITH GAIT STEADY WITH SHORTENED STRIDE. BED ALARM TURNED ON WHEN BACK IN BED FROM BATHROOM.
--- NOTE | 2020-04-11 22:55 | NUR ---
PATIENT GETTING OUT OF BED, SETTING OFF BED ALARM. PATIENT STATING HE WANTS TO GET OUT OF BED, WANTING TO EAT BREAKFAST, WHEN INFORMED THIS WAS TIME FOR SLEEP, PATIENT REPLIED "I DON'T CARE". PATIENT AMBULATED W/GAIT BELT IN PLACE AND YELLOW HOSP SOCKS ON WITH STAFF BAR MACHINE OPERATOR MULTIPLE SPINDLE ACCOMPANYING PATIENT. AFTER WALK, PATIENT AGREED TO LAY DOWN TO SLEEP, IF ABLE.
--- NOTE | 2020-04-11 23:01 | NUR ---
PATIENT NEEDED FREQUENT CUES TO CALIBRATION LABORATORY TECHNICIAN FEET WHEN WALKING.
--- NOTE | 2020-04-11 23:30 | NUR ---
PATIENT SITTING UP IN CHAIR, LEANING TO LEFT WITH EYES CLOSED, BREATHING NONLABORED AND DOES NOT WAKE WHEN STAFF STOOD IN DOORWAY. CHAIR ALARM ON.
[2020-04-12 05:41] VITALS: BP 132/86; PULSE 78; TEMP 97.3
--- NOTE | 2020-04-12 10:54 | NUR ---
Patient working with therapy at this time. Night nurse reported that patient did not sleep last night but a few hours due to bed being uncomfortable. Patient was given an air mattress which he agreed too. Patient refused to sit in the recliner so staff provided patient a regular chair to sit in and an alarm was placed in that chair along with blanket to provide more comfort. Patient was not using his call light this morning so this nurse spent approximatly 40 minutes with patient educating and visiting with him. This nurse spoke with Nohemy Fair and Nohemy was able to visit with patient and he has been complying with staff at this time. This nurse did speak with surgical nurse and they recommended that this nurse get an order for a sitter for the patient. Nohemy spoke with this nurse and it was decided to continue to observe patient before the decision to use a sitter was determined. Will continue to monitor.
--- NOTE | 2020-04-12 11:30 | NUR ---
This nurse received a report from Speech therapy that patient was not happy and did not want to participate in therapy today.
--- NOTE | 2020-04-12 11:45 | NUR ---
Was updated by PT that patient was refusing therapies. Patient was found to be lying on his bed with feet on the floor facing the window and his body was lying accross the bottom half of the bed and his head was lying on the bed side table. Patient kept trying to close his eyes, but would then get frustrated and then just sit up. Patient refused to lie on the bed in a lengthwise direction, because he wanted to go home and sleep on his bed. Our bed is too soft for him. This position the patient was in concerned this nurse so this nurse asked supervisor car and yard if patient could have a sitter, because this nurse felt like he was not making safe decsions when left in his room alone. This nurse then spoke with Nohemy Hugginsjanis and she was able to visit with patient. Patient at about that same time was seen by his grand daughter and she was able to sit with him for a while. Patient was very tearful and Nohemy was able to visit with both his granddaughter and patient. Following this discussion patient was again tearful and began talking to friends and family on the phone asking them to come and pick him up so he could go home. This nurse asked management if someone would be available to sit with patient as this nurse found out from Nohemy Fair that patient had made a statment about suicide. Management spent a good hour or more walking and visiting with patient, when at some time patient tried to leave the facility. Patient's daughter was called following patient being seen by providers. Daughter was able to stay and keep patient occupied and calmed down. During the daughter's visit [facility] appliance service representative Kavon Saleh called and he had this nurse set patient up with a zoom psych screening over the [facility]. Patient was refusing to do this, but did talk with Kavon for a short period of time. Patient refused any type of services stating that he just wanted to go home. After the zoom meeting was completed Kavon said that he would send his report via fax to [phone] in about 40 minutes. He said that patient had a similar episode like today about 3 years ago and patient had refused to go to any facility at that time as well. He recommended that staff work with patient at the hospital and he suggested given patient Zyprexa 1-5 mg 1 x dose along with Trazadone. He also suggested 0.5 mg Risperidol PO along with Seroquel in combination to possibly help with patient's agression/frustration. This was communicated to the provider Lulu. Following the zoom conference call the Provider Lulu saw patient and patient was put on suicide precautions. This nurse received a call from a Earnest Sears, of which is the patient's so called adopted son that lives in [place], [place]. Earnest was calling on behalf of the patient's and gave this nurse the pin number for the patient. Earnest was provided a brief update on the patient's condition and then Earnest said that he would update patient's and text Nivia, granddaughter to make sure she knew that he had called the hospital with some concerns. Patient is now with his sitter and this reported off to that nurse. He will continue to monitor the patient.
--- NOTE | 2020-04-12 13:56 | NUR ---
Admission QIM scores were reviewed by the team. Code of 2 chosen for sit to lying was determined by team discussion to be the most usual performance for this patient during the assessment period. Code of 3 chosen for walk 10 feet was determined by team discussion to be the most usual performance for this patient during the assessment period.--Nohemy Fair,
--- NOTE | 2020-04-12 14:46 | NUR ---
Pt sitting up in his chair. He first stated that he has had a bad day. I asked what happened or if there was something I could do to make it better. He said no. After some talking, he stated that he was just tired of living and that there was going to be a big [place] gathering to discuss what he is to do. I asked him if he has talked to his family about what he wants, he stated, "No, because I'm going to be there." He says that his brother is going to come pick him up. Attempted to do the suicide screening, but he only responded with, "Don't even go there, I know what you are trying." I brought the conversation back to him stating that he said he was tired of living. Pt started to get agitated and said he doesn't want to talk about that. Pt no longer talking to me and is attempting to make phone calls to his family.
--- NOTE | 2020-04-12 15:26 | NUR ---
Have had multiple visits w/ patient today. Initially was due to him not wanting to sit, so spent some time visiting with him, which seemed to help. Later was informed by ST that pt had verbalized suicidal thoughts & has a plan. Spoke w/ pt again, who is tearful & admits that he is in a dark place & that he doesn't feel he is going to get any better & is tired of dealing w/ the Parkinson's. Went back to visit w/ pt & his granddaughter was visiting but they were both crying. Pt reported that he has talked to his & son about not wanting to carry on. Granddaughter is very upset & spent time talking w/ her. Was informed that he has a history of depression w/ the Parkinson's & had been on medication but quit taking them. She stated he did have suicidal thoughts about 3 years ago but didn't think it had been an issue anymore. We talked about how being isolated during his COVID quarantine & the sickness can have a negative effect on one's thought process. We did schedule for a Family Meeting at 1:00 pm tomorrow, 04/13/20. Nurse survey project manager has been notified regarding what actions need to be taken.
--- NOTE | 2020-04-12 17:07 | NUR ---
Pt back in his room at this time visiting with his daughter. He left his room escorted by myself and wanted to leave. He refused to allow me to put on a gait belt. I was able to distract him for some time before he was able to force himself off the unit and to elevator A. I asked for more assistance as he was continuing trying to leave the hospital. Dr Arnold and Lulu JIG AND FIXTURE REPAIRER present and assessed him as well. Pt was steady on his feet during this time.
--- NOTE | 2020-04-12 19:32 | NUR ---
Daughter here with pt Pt refusing parts of head to toe assessment. Pt walking in room and hallway without difficulty, refusing to wear mask. At the moment pt is restless but not aggitated. Pt is redirected or calmed by speaking about his classic cars, which is a passion of his. Pt refusing to answer suicide assessment questions - avoids answering by asking for help working on one of his vehicles when he goes home. Call light in reach Pt in line of sight 193: pt requesting sleeping pill as pt states he is ready for bed since "I only slept maybe one hour last night". Daughter has left after settling pt in bed. Bed alarm on. Pt instructed to call even though staff will have eyes on pt.
[2020-04-12] MEDS ORDERED: BELSOMRA10 MG PO (20:14)
[2020-04-13 04:45] VITALS: BP 132/91; PULSE 73; TEMP 97.1
--- NOTE | 2020-04-13 09:59 | NUR ---
PT RESTING IN RECLINER AT BEDSIDE SHIFT REPORT. PT HAD A GOOD NIGHTS REST, FAMILY TO BE BRINGING IN [facility] SLEEP [facility] TODAY FOR INSOMNIA. PT COOPERATIVE WITH THERAPY THIS AM. ABLE TO HAVE CALM AND OREINETED CONVERSATION WITH PT THIS AM, ABLE TO PERFORM ASSESS AND AMDMINISTER ORAL MEDS.
--- NOTE | 2020-04-13 15:18 | NUR ---
Adjuster attended family meeting, those present were Nohemy, IPR Director, PT/OT/ST staff and the patient's family present via speaker phone. Nohemy began the meeting with stating it's purpose. Staff went over the patient's progress. The team is recommending a discharge on Monday 04/17 with home health services. The family also inquired about private duty services. The patient would also benefit from outpatient mental health support. SW to follow up with family regarding recommendations. All questions were answered.
--- NOTE | 2020-04-13 15:22 | NUR ---
GIANNI contacted the patient's , Shiela, to follow up on home health, private duty services, and outpatient mental health. GIANNI informed Shiela of [employer]'s list of home health agencies that serve [place]. Shiela chose [facility]. GIANNI contacted and faxed a referral to Emilee at [facility]. Emilee reports that they are able to accept the patient for services. GIANNI then discussed private duty services and provided Shiela with the contact information for [facility]. GIANNI informed Shiela of the [facility] for [facility] in [place] for outpatient mental health. Shiela was interested in getting the patient set up there. GIANNI contacted and faxed the patient's facesheet and medlist to Hoang at [facility]. Hoang reports that they will get in touch with the patient's early next week to set up an appointment.
[2020-04-13 17:25] VITALS: BP 84/35; PULSE 68; TEMP 97.3
--- NOTE | 2020-04-13 19:29 | NUR ---
PT DID NOT SHOW ANY AGITATION TO THIS NURSE TODAY. PARTICIPATED IN THERAPY, WAS SOMEWHAT GROGGY THIS AFTERNOON. FAMILY CALLED TO SEE IF THEY ARE STILL BRINGING IN SLEEP AID [facility], HAS NOT SHOWN UP AT SHIFT CHANGE.
[2020-04-13 19:34] VITALS: BP 120/64; PULSE 73
--- NOTE | 2020-04-13 19:41 | NUR ---
Rechecked patient's blood pressure.
--- NOTE | 2020-04-13 20:32 | NUR ---
Patient sitting up in chair. Took bedtime meds. Requested chocolate ice cream. No complaints at this time.
--- NOTE | 2020-04-13 22:00 | NUR ---
Patient walking the halls looking at pictures. States he does not want to go to bed. Patient given melatonin.
--- NOTE | 2020-04-13 22:31 | NUR ---
Patient back in his room sitting in his chair. Chair alarm on. Patient says he does not need it and it will go off all night. Explained to patient it was for his safety and would not alarm unless he got up. Patient given seroquel.
[2020-04-14 05:04] VITALS: BP 128/86; PULSE 80; TEMP 98.3
--- NOTE | 2020-04-14 06:23 | NUR ---
Patient slept through most of the night with no complaints. Bed/chair alarm kept on throughout the night.
[2020-04-14 17:15] VITALS: BP 108/44; PULSE 71; TEMP 97.5
--- NOTE | 2020-04-14 18:30 | NUR ---
PATIENT BECAME AGITATED AND RESTLESS AFTER COMPLETING AFTERNOON THERAPY AND EATING LUNCH. PATIENT WAS CURSING AT NURSING STAFF AND STARTED PACKING HIS BAG. PATIENT WAS NOT ABLE TO BE RE-DIRECTED AND REFUSED TO TAKE PRN SEROQUEL. MONY MAYES CALLED AND NOTIFIED. ORDERS TO TRY AND GIVE SEROQUEL AGAIN WHEN THE PATIENT CALMS DOWN A LITTLE. PATIENT ENDED UP TAKING A PRN DOSE OF SEROQUEL WITH AFTERNOON DOSE OF SINEMET. PATIENT IS CURRENTLY RESTING IN BED WITH ALARMS ON. CALL LIGHT IN REACH. WILL REPORT OFF TO ONCOMING NURSE.
--- NOTE | 2020-04-14 19:30 | NUR ---
PT SLEEPING. NO DISTRESS. BED ALARM ON MIDDLE SETTING. CALL LIGHT IN REACH.
--- NOTE | 2020-04-14 20:00 | NUR ---
PT AWAKE. BED ALARM SOUNDING. SITTING ON SIDE OF BED. CALM. PT HAS TO GO TO BR. PT STANDS TO AMB TO BR. ENC TO STOP TO PUT ON GAIT BELTS. PT REPLIED I CAN'T. KEEPS GOING. RELATES HE DID NOT NEED WALKER BUT TOOK IT WITH HIM INTO BR. PT VOIDED THEN RETURNED TO BED. PT WILLING TO TAKE HS MEDS. RETURN TO SLEEP. CALL LIGHT IN REACH. BED ALARM ON.
--- NOTE | 2020-04-14 23:17 | NUR ---
SPOKE WITH YONATAN JULIAN REGARDING CLARIFICATION OF SUICIDE RISK OBS LEVEL 2. SHE WILL ENTER NEW ORDER TO DC OBSERVATION.
--- NOTE | 2020-04-15 04:00 | NUR ---
PT HAS BEEN RESTING IN RECLINER WITH FEET ELEVATED AND CHAIR ALARM ON. NOW CHAIR ALARM SOUNDING. FOUND PT STANDING. PT TIRED OF CHAIR AND BED. PT WANTS TO TAKE A WALK. PT ALITLE AGITATED AND UNCOOPERATIVE. PT RELATED HE WAS UNCOMFORTABLE. SEE MAR FOR TYLENOL AND SEROQUEL 12.5MG GIVEN. ASSISTED PT WITH AMB IN [place]. REFUSED WALKER. HAS GAIT BELT ON.
--- NOTE | 2020-04-15 05:00 | NUR ---
PT VERY AGITATED. ALLOWED PT TO AMB TO [place] MACHINE WITH 3 STAFF FOR ASSISTANCE. PT BOUGHT SOME CANDY BUT RN INSISTED PT SIT IN WC ON THE WAY BACK TO ROOM. PT VERY UNSTEADY. PT REMAINS VERY ARGUMENTIVE. BACK TO ROOM. PT REFUSES TO RETURN TO BED OR RECLINER. HAD POULTRY PICKING MACHINE TENDER SIT WITH PT. PT FINALLY AGGREED TO BED BUT THEN WOULD NOT LIFT FEET INTO BED. ALLOWED PT TO SIT ON SIDE OF BED WHILE POULTRY PICKING MACHINE TENDER THERE.
--- NOTE | 2020-04-15 05:30 | NUR ---
PT ASSISTED INTO BED. NEWSPAPER LIBRARY MANAGER READING THE MAGAZINE TO PT. PT STRATING TO DOZE. CALL LIGHT IN REACH. BED ALARM ON MIDDLE SETTING.
--- NOTE | 2020-04-15 10:13 | NUR ---
Patient was sleeping in bed this morning until 9:30 AM when he attempted to get out of bed, with the alarm ringing. This nurse assisted patient imediatly to the bathroom. Patient was very unsteady so this nurse used gait belt and walker to get patient to the bathroom. Patient stands to urinate and this nurse stood by to steady him. Patient was not able to pull his pants up or down this morning. Patient currently resting in recliner, call light in reach and bed alarm set. Patient has been tearful this morning when watching his daughter on his phone play the piano. Patient agreed to take his pills this morning.
--- NOTE | 2020-04-15 10:35 | NUR ---
Spoke with patient's unofficial adopted son Earnest Sears and he will talk with patient's about bringing in an IPAD for him to work with. Earnest has also talked with patient's friends requesting them to not call at this time due to patient wanting to have them come and take him home. He feels their calls are not productive for the patient or staff.
[2020-04-15 12:52] VITALS: BP 89/56; PULSE 69; TEMP 97.4
--- NOTE | 2020-04-15 14:05 | NUR ---
Patient's arrived at 1:40 pm and is currently visiting with patient in his room. Patient was a one assist with going to the bathroom and refused to let the nurse into the bathroom with him. Patient had a large BM and then was a one assist to transfer to the sink for him to wash his hands. Patient refused to sit down at that time, so staff and patient's walked him around the surgical unit for exercise. Patient refused to wear his mask at first, but then agreed when other staff mentioned it again. Will continue to monitor.
[2020-04-15 14:21] VITALS: BP 111/67
--- NOTE | 2020-04-15 15:04 | NUR ---
Patient currently resting in recliner with sitting on the couch at his side. Patient's chair alarm is on and his call light is in reach. Will continue to monitor.
--- NOTE | 2020-04-15 15:36 | NUR ---
This nurse heard patient's alarms sounding and by the time this nurse arrived to patient room he was standing up in front of his recliner requesting to go to bed. Patient's was a stand by assist with walker. Will continue to monitor.
--- NOTE | 2020-04-15 16:07 | NUR ---
Patient lying in bed next to his sleeping at this time. Call light in reach. Will continue to monitor.
--- NOTE | 2020-04-15 19:18 | NUR ---
left before supper tonight, but set her up for watching the bowel game tonight. Patient in pleasent mood this afternoon. Reported off to night nurse.
--- NOTE | 2020-04-15 20:39 | NUR ---
NAMED EACH SCHEDULED MED ONE BY ONE. REFUSED ELIQUIS. GAVE PT THE MEDICATION CUP WITH PILLS IN IT. TOOK OUT SOME LEFT OTHERS IN HIS HAND. HE REFUSED TO TAKE THE REST. "I TOOK THE ONES I WANTED TO TAKE. TOOK OUT OTHER MEDS FROM HIS HAND. PT ARGUMENTATIVE. CALL LIGHT IN REACH. CHAIR ALARM SET.
--- NOTE | 2020-04-15 21:00 | NUR ---
IDENTIFIED PILLS PT REFUSED EARLIER- KLONAZEPAM, SINEMENT, BASA, AND ELIQUIS.
--- NOTE | 2020-04-15 21:50 | NUR ---
PT STILL REFUSING TO TAKE THE REST OF HIS MEDS. PT RESTING IN THE RECLINRE. DENIES WANTING TO GO TO BED. ALLOWED PT TO CALM HIMSELF. CALL LIGHT IN REACH. CHAIR ALARM STILL SET. "PT RELATES "SHIT HAPPENS"
--- NOTE | 2020-04-15 21:52 | NUR ---
OFFERED ASSIST TO BED. PT REFUSED. CHECKING ON PT FREQUENTLY.
[2020-04-16 03:57] VITALS: BP 156/80; PULSE 70; TEMP 97.9
--- NOTE | 2020-04-16 03:58 | NUR ---
ASSISTED TO BR WITH WALKER. UNSTEADY SHUFFLING GAIT. VOIDED AND THEN TO RECLINER. OFFERED PT SINEMNET THAT HE REFUSED AT 2100 LAST NIGHT- STILL REFUSED. CALL LIGHT IN REACH. CHAIR ALARM ON.
--- NOTE | 2020-04-16 05:27 | NUR ---
PT CURRENTLY SLEEPING IN RECLINER. REFUSED LEG ELEVATION.
--- NOTE | 2020-04-16 06:19 | NUR ---
PT SLEEPING AT THIS TIME. NO DISTRESS.
--- NOTE | 2020-04-16 14:44 | NUR ---
PT ASSISTED TO RESTROOM AT BEDSIDE SHIFT REPORT AND BACK TO RECLINER FROM BED, WHICH PT HAD BEEN IN FOR 15 MINUTES. PT DENIES PAIN, STATES HE JUST WANTS TO ARGUE THIS MORNING WHEN GOING OVER HIS MEDICATIONS. HE STATED SEVERAL TIMES HE FEELS HE DOESN'T NEED TO BE ON ALL THE MEDICATIONS AND THINKS THEY ARE UNNECESSARY. PT DID AGREE TO TAKE ALL MEDS AFTER A WHILE. PT MADE MOD-I IN ROOM TODAY. PT WAS NOT COMPLIANT WITH USING CALL LIGHT BEFORE.
[2020-04-16 16:28] VITALS: BP 120/57; PULSE 70; TEMP 98.7
--- NOTE | 2020-04-16 19:00 | NUR ---
RECEIVED CHANGE OF SHIFT REPORT FROM DAY SHIFT NURSE.
--- NOTE | 2020-04-16 19:45 | NUR ---
RECEIVED CHANGE OF SHIFT REPORT FROM DAY SHIFT NURSE. PATIENT SLEEPING, DOES NOT WAKEN WITH NAME CALLED. PATIENT UP INDEPENDENT IN ROOM AND HALLS WITH NO REPORTED COMPLAINTS OR NEEDS.
--- NOTE | 2020-04-16 20:17 | NUR ---
PT MADE IND IN ROOM TODAY, AWAITING DISCHARGE TOMORROW. PT SOMEWHAT UPSET EARLIER IN THE DAY THAT HE COULD NOT LEAVE OR BE DISCHARGED TODAY. FAMILY IS SOMEWHAT CONCERNED ABOUT HIM COMING HOME TOMORROW, FEELS SHE IS NOT READY TO CARE FOR HIM HERSELF.
--- NOTE | 2020-04-17 01:00 | NUR ---
PATIENT CONTINUES TO BE UP AD PAMELA IN ROOM WITH NO REPORTED/OBSERVED PROBLEMS WITH GAIT, STEADY GAIT SO FAR THIS SHIFT. PATIENT DENIES ANY NEEDS OR CONCERNS AT THIS TIME. PATIENT IS COOPERATIVE WITH MEDS TAKEN AND ALLOWING STAFF TO ACCOMPANY HIM ON WALKS OUTSIDE OF ROOM BUT INSIST NO BED/CHAIR ALARMS D/T BEING IRRITATED BY LOUD PERSISTANT NOISE FROM ALARMS THAT WOULD IRRITATE PATIENT AT TIME.
[2020-04-17 05:09] VITALS: BP 187/90; PULSE 69; TEMP 97.2
--- NOTE | 2020-04-17 07:36 | NUR ---
CHANGE OF SHIFT REPORT GIVEN TO DAY SHIFT NURSE.
[2020-04-17] MEDS ORDERED: RT Albuterol HFA MDI IH (08:46)
[2020-04-17] MEDS ORDERED: WELLBUTRIN 75MG75 MG PO (08:47)
--- NOTE | 2020-04-17 10:20 | NUR ---
Patient resting in recliner at this time, call light in reach and is independent in his room per therapy. Patient denies any pain at this time. Dr. Marc saw patient and completed the discharge orders. Will work on making follow up appointments for patient's discharge.
--- NOTE | 2020-04-17 10:36 | NUR ---
The patient is to discharge home today, 04/17 with [facility] with PT/OT/Nursing orders. Discharge orders faxed. SW contacted [facility] regarding discharge orders. SW presented the IM form to the patient. The patient understood and signed the form. A copy was provided to the patient and the original was placed in the chart. There are no additional needs.
--- NOTE | 2020-04-17 11:00 | NUR ---
Patient walking in his room and in IPR hallway as he is independent. 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
--- NOTE | 2020-04-17 12:30 | NUR ---
Patient Health Summary, Discharge Summary, and Home Meds printed and reviewed with patient's Shiela. Stressed importance of follow up appointments. Pharmacy was called and the following meds were called to pharmacy of patient's choice: Clonazepam, Mirabegron ER, Montelukast, Flomax, Ropinirole XL, Apixaban, Digoxin, Metoprolol ER (dose change), Irbesartan (dose change) per Dr. Marc. Belongings gathered by LIZ Fitzpatrick including phone, bobbin collector and misc. items. Patient transported via wheelchair by HAKEEM/Michelle and seatbelted for ride home with . Patient denied any questions.
== END 2020-04-17 12:30 | disposition home health service (06) | DRG 177 ==
LOC: MEDICAL 16:54
PROVIDERS: ADMIT Internal Medicine
DX: U07.1 COVID-19 (principal); J12.82 Pneumonia due to coronavirus disease 2019; J96.01 Acute respiratory failure with hypoxia; N17.9 Acute kidney failure, unspecified; R45.851 Suicidal ideations; I48.91 Unspecified atrial fibrillation; I25.10 Atherosclerotic heart disease of native coronary artery without angina pectoris; G20 Parkinson's disease; I10 Essential (primary) hypertension; I95.9 Hypotension, unspecified; N40.0 Benign prostatic hyperplasia without lower urinary tract symptoms; F32.9 Major depressive disorder, single episode, unspecified; E87.6 Hypokalemia; E78.5 Hyperlipidemia, unspecified; G47.00 Insomnia, unspecified; Z79.891 Long term (current) use of opiate analgesic; Z79.82 Long term (current) use of aspirin; Z79.01 Long term (current) use of anticoagulants; Z95.0 Presence of cardiac pacemaker; Z86.19 Personal history of other infectious and parasitic diseases
CPT/HCPCS: 99222-AI; 99231-AI; 99232-AI; 99239; J8540

== ENCOUNTER 2020-10-17 18:48 | Emergency (ER) | payer MEDICARE, BC ==
[~2020-10-17] VITALS: Ht 185.4 cm; Wt 104.5 kg
[~2020-10-17 18:48] MED LIST changes: +WELLBUTRIN 75MG75 MG PO
[2020-10-17 19:35] LABS: CREATINE KINASE 54 U/L (55-170); LIPASE 101 U/L (23-300)
[2020-10-17 19:36] LABS: BASO # 0.1 (0.0-0.2); BASO % 1.9 % (0.0-2.0); EOS # 0.3 (0.0-0.7); EOS % 8.5 % (0-4.0); GRAN % 54.4 % (42.2-75.2); HEMATOCRIT 39.2 % (42.0-52.0); LYMPH # 0.9 (1.2-3.4); LYMPH % 25.7 % (20.0-51.0); MEAN CELL VOLUME 100 fl (80.0-100.0); MEAN CORPUSCULAR HEMOGLOBIN 31 pg (27.0-31.0); MEAN CORPUSCULAR HGB CONC 31 g/dl (33.0-37.0); MEAN PLATELET VOLUME 9.1 fl (7.4-10.4); MONO # 0.3 (0.1-0.6); PLATELET COUNT 204 K/mm3 (130-400); RED BLOOD COUNT 3.93 M/mm3 (4.20-5.60); REDCELL DISTRIBUTION WIDTH-CV 13.4 % (11.5-14.5)
[2020-10-17 19:40] LABS: ALANINE AMINOTRANSFERASE 11 U/L (4-49); ALBUMIN 3.5 gm/dL (3.5-5.0); ALKALINE PHOSPHATASE 85 U/L (50-136); ANION GAP 3 mmol/L (7-16); AST,SGOT 26 U/L (15-37); BILIRUBIN,TOTAL 1.5 mg/dL (0.0-1.0); BLOOD UREA NITROGEN 18 mg/dL (9-20); CALCIUM 8.7 mg/dL (8.4-10.2); CARBON DIOXIDE 31 mmol/L (22-30); CHLORIDE 105 mmol/L (98-107); CREATININE, serum 0.85 (0.66-1.25); GLUCOSE 112 mg/dL (74-106); POTASSIUM 3.9 mmol/L (3.4-5.0); SODIUM 140 mmol/L (137-145); TOTAL PROTEIN 6.2 gm/dL (6.4-8.2)
[2020-10-17 19:53] LABS: TROPONIN-I < 0.012 ng/mL (0.000-0.035)
[2020-10-17 19:56] LABS: INR 1.2 (0.8-3.0); PROTHROMBIN TIME 13.7 SECONDS (9.7-12.8)
[2020-10-17 20:45] VITALS: BP 187/98; PULSE 70; TEMP 98.1
== END 2020-10-17 20:45 | disposition home or self-care (01) ==
LOC: COL.ER 18:48
PROVIDERS: Emergency Medicine
DX: R07.89 Other chest pain (principal); M54.2 Cervicalgia; I48.91 Unspecified atrial fibrillation; I10 Essential (primary) hypertension; I25.10 Atherosclerotic heart disease of native coronary artery without angina pectoris; G20 Parkinson's disease; F32.9 Major depressive disorder, single episode, unspecified; E78.5 Hyperlipidemia, unspecified; N40.0 Benign prostatic hyperplasia without lower urinary tract symptoms; Z95.0 Presence of cardiac pacemaker; Z79.01 Long term (current) use of anticoagulants; Z79.82 Long term (current) use of aspirin; Z79.899 Other long term (current) drug therapy

== ENCOUNTER 2023-08-28 17:53 | Emergency (ER) | payer MEDICARE, BC ==
[~2023-08-28] VITALS: Ht 185.4 cm; Wt 106.8 kg
[2023-08-28 18:06] VITALS: TEMP 98.2
[2023-08-28 18:57] LABS: BASO % 0.7 % (0.0-2.0); EOS # 0.1 K/mm3 (0.0-0.7); EOS % 2.6 % (0.0-4.0); GRAN # 3.7 K/mm3 (1.4-6.5); GRAN % 67.7 % (42.2-75.2); HEMATOCRIT 40.3 % (42.0-52.0); HEMOGLOBIN 13.1 g/dl (13.5-18.0); LYMPH # 1.2 K/mm3 (1.2-3.4); LYMPH % 21.7 % (20.0-51.0); MEAN CELL VOLUME 96 fl (80.0-100.0); MEAN CORPUSCULAR HEMOGLOBIN 31 pg (27-31); MEAN CORPUSCULAR HGB CONC 33 g/dl (33.0-37.0); MEAN PLATELET VOLUME 9.5 fl (7.4-10.4); MONO # 0.4 K/mm3 (0.1-0.6); MONO % 6.9 % (1.7-9.3); PLATELET COUNT 148 K/mm3 (130-400); REDCELL DISTRIBUTION WIDTH-CV 12.7 % (11.5-14.5)
[2023-08-28] MEDS ORDERED: Acetaminophen 500 MG TAB PO ONE (19:00)
[2023-08-28 19:24] LABS: ALBUMIN 3.5 g/dL (3.4-4.8); ALKALINE PHOSPHATASE 76 U/L (40-150); ANION GAP 9 mmol/L (7-16); AST,SGOT 15 U/L (5-34); BLOOD UREA NITROGEN 15 mg/dL (8-26); CALCIUM 9.7 mg/dL (8.4-10.2); CHLORIDE 110 mEq/L (98-107); CREATININE, serum 0.95 mg/dL (0.72-1.25); GLUCOSE 91 mg/dL (70-99); POTASSIUM 3.8 mEq/L (3.5-4.5); SODIUM 143 mEq/L (136-145); TOTAL PROTEIN 5.6 g/dl (6.2-8.1)
[2023-08-28 19:35] LABS: ALANINE AMINOTRANSFERASE < 6 U/L (0-55); TROPONIN-I < 0.010 ng/mL (0.00-0.033)
[2023-08-28 20:23] VITALS: BP 160/90; PULSE 80
== END 2023-08-28 20:30 | disposition home or self-care (01) ==
LOC: COL.ER 17:53
PROVIDERS: Emergency Medicine
DX: S50.02XA Contusion of left elbow, initial encounter (principal); R29.810 Facial weakness; R47.1 Dysarthria and anarthria; W19.XXXA Unspecified fall, initial encounter